=== PATIENT | female | born 1980 | race Caucasian/White ===

== ENCOUNTER → 2020-06-28 11:46 | Outpatient (CLI) | payer BC, SELFPAY ==
--- NOTE | ~2020-06-28 | XR_ITS ---
EXAMINATION: XR chest 2V DATE: 06/28/2020 12:40 INDICATION: Cough. Chest tightness. TECHNIQUE: Frontal and lateral views of the chest were obtained. COMPARISON: Chest 2 views 08/30/2017 FINDINGS: The chest demonstrates clear lungs without pneumonia, pleural effusion, or pneumothorax. Th e heart size is normal. IMPRESSION: 1. No acute cardiopulmonary disease. Reviewed, dictated and finalized at location A. 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
== END ==
PROVIDERS: Visit Provider Physician Assistant
DX: R05 Cough (principal)
CPT/HCPCS: 71046

== ENCOUNTER 2020-07-19 11:13 | Outpatient (CLI) | payer BC, SELFPAY ==
--- NOTE | ~2020-07-19 | CT_ITS ---
EXAMINATION: CTA chest PE protocol DATE: 07/19/2020 12:00 INDICATION: Dyspnea. TECHNIQUE: Computed tomography (CT) pulmonary angiogram of the chest was performed with 100 mL Omnipa que-350 intravenous contrast. Evaluation of the lower lungs is nondiagnostic on the initial images du e to prominent respiratory motion and repeat images were obtained with an additional 100 mL Omnipaque 350 intravenous contrast. Additional 3D reconstructions utilizing coronal maximum intensity projecti on (MIP) were performed. Automated exposure control and iterative reconstruction technique were emplo yed. The dose-length product was 430.98 mGy-cm. COMPARISON: None FINDINGS: Excellent contrast opacification of the pulmonary arteries. There is mild streak artifact from dense contrast in the superior vena cava and right atrium. No respiratory motion artifact on the repeat shabbri ges yielding diagnostic quality study which demonstrates no pulmonary embolism. Tiny calcified left l ower lobe nodule consistent with old granulomatous disease. Lungs are clear. No pneumonia, pulmonary edema, pleural effusion or pneumothorax. Heart size is normal. No pericardial or pleural effusion. Th oracic aorta is normal in caliber with no dissection. No pathologically enlarged thoracic lymphadenop athy. Likely benign 6 mm left thyroid nodule. Visualized upper abdomen is unremarkable. IMPRESSION: 1. No pulmonary embolism or other acute cardiopulmonary disease. Reviewed, dictated and finalized at location B. 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
== END 2020-07-19 11:14 | disposition home or self-care (01) ==
PROVIDERS: PCP Physician Assistant; Visit Provider Physician Assistant
DX: R06.00 Dyspnea, unspecified (principal)
CPT/HCPCS: 71275; Q9967

== ENCOUNTER → 2020-11-18 09:41 | Outpatient (CLI) | payer BC, SELFPAY ==
--- NOTE | ~2020-11-18 | US_ITS ---
EXAMINATION: US thyroid DATE: 11/18/2020 10:19 INDICATION: Thyroid nodule. TECHNIQUE: Multiple ultrasound images of the thyroid were obtained. COMPARISON: None. FINDINGS: The right thyroid lobe measures 5.7 x 1.4 x 1.4 cm. The left thyroid lobe measures 4.8 x 1.2 x 1.8 c m. In the left thyroid lobe, there is a 1.2 cm almost entirely cystic nodule (TI-RADS TR-1). In the left thyroid lobe, there is a 1.0 cm mixed solid and cystic, hypoechoic, wazrm-uvng-uvbf nodule with ill-defined margin without echogenic foci (TR-3). In the right thyroid lobe, there is a 10 mm mixed s olid and cystic, isoechoic, byjzs-akui-ltfs nodule with smooth margin without echogenic foci (TR2). I n the right thyroid isthmus, there is a 12 mm solid, hypoechoic, kustm-vzxk-eigc nodule with smooth m argin without echogenic foci (TR4). IMPRESSION: 1. Thyroid nodules. Thyroid ultrasound is recommended in one year. Reviewed, dictated and finalized at location A.
== END ==
PROVIDERS: PCP Physician Assistant; Visit Provider Physician Assistant
DX: E04.1 Nontoxic single thyroid nodule (principal)
CPT/HCPCS: 76536

== ENCOUNTER → 2021-06-17 16:53 | Outpatient (CLI) | payer BC, SELFPAY ==
--- NOTE | ~2021-06-17 | XR_ITS ---
EXAMINATION: XR chest 2V EXAM DATE: 06/17/2021 17:08 INDICATION: Cough . TECHNIQUE: Frontal and lateral projections of the chest obtained and reviewed. Comparison is made to prior examination from 06/28/2020. FINDINGS: The lungs are clear. There are no pleural effusions. The cardiomediastinal silhouette is within normal limits. There is no pneumothorax suspected. The bones and soft tissues are unremarka ble. IMPRESSION: 1. No acute cardiopulmonary findings. 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
== END ==
PROVIDERS: PCP Physician Assistant; Visit Provider Physician Assistant
DX: R05.9 Cough, unspecified (principal)
CPT/HCPCS: 71046

== ENCOUNTER → 2021-12-15 12:02 | Outpatient (CLI) | payer BC, SELFPAY ==
--- NOTE | ~2021-12-15 | US_ITS ---
EXAMINATION: US thyroid DATE: 12/15/2021 12:18 INDICATION: Thyroid nodule. TECHNIQUE: Multiple ultrasound images of the thyroid were obtained. COMPARISON: Thyroid ultrasound 11/18/2020 FINDINGS: The right thyroid lobe measures 5.4 x 1.5 x 1.5 cm. The left thyroid lobe measures 5.1 x 1.2 x 2.0 c m. In the right thyroid lobe, there is a 9 mm mixed cystic and solid, isoechoic, vathr-oeql-nprs nod ule with smooth margin without echogenic foci (TI-RADS TR2). In the left thyroid lobe, there is a 10 mm spongiform, hypoechoic, msoca-czxg-veyc nodule with smooth margin without echogenic foci (TR2). In the thyroid isthmus, there is an 8 mm solid, isoechoic, vbxqb-uxfl-owuo nodule with ill-defined boni in without echogenic foci (TR3). IMPRESSION: 1. Small thyroid nodules, likely not clinically significant. No follow-up is needed. Reviewed, dictated and finalized at location A. IMPRESSION: 1. Small thyroid nodules, likely not clinically significant. No follow-up is ne eded.
== END ==
PROVIDERS: PCP Physician Assistant; Visit Provider Physician Assistant
DX: E04.2 Nontoxic multinodular goiter (principal)
CPT/HCPCS: 76536

== ENCOUNTER → 2022-10-13 16:57 | Outpatient (CLI) | payer OTHER, SELFPAY ==
--- NOTE | ~2022-10-13 | XR_ITS ---
EXAMINATION: XR chest 2V DATE: 10/13/2022 17:15 INDICATION: Cough TECHNIQUE: PA and lateral views of the chest were obtained. COMPARISON: Chest radiograph dated 06/17/2021 FINDINGS: The lungs remain clear with no focal airspace opacities, pulmonary edema, pleural effusion or pneumot horax. The cardiomediastinal silhouette is normal. Mild to moderate thoracic spondylosis. IMPRESSION: 1. No acute cardiopulmonary disease. Reviewed, dictated and finalized at location A. ATRIC TECHNICIAN
== END ==
PROVIDERS: PCP Physician Assistant; Visit Provider Physician Assistant
DX: R05.9 Cough, unspecified (principal)
CPT/HCPCS: 71046

== ENCOUNTER → 2023-01-30 07:41 | Outpatient (CLI) | payer OTHER, SELFPAY ==
--- NOTE | ~2023-01-30 | MM_ITS ---
EXAMINATION: MM screening kassie BI w yassine HISTORY: Screening mammogram TECHNIQUE: Craniocaudal and mediolateral oblique 3-D tomosynthesis images were obtained and synthetic 2-D images were generated. CAD analysis was submitted and interpreted. COMPARISON: No prior mammogram is available for comparison at this institution. BREAST PARENCHYMAL COMPOSITION: The breasts are heterogeneously dense, which may obscure small masses . FINDINGS: Circumscribed oval approximately 5 x 12 mm mass in the left axillary area; diagnostic left mammogram is recommended, with ultrasound if required. There are subtle indeterminate grouped microcalcifications bilaterally, possibly arterial on the left . Bilateral diagnostic mammography with magnification views is recommended, with ultrasound if requir ed. IMPRESSION: 1. Bilateral subtle indeterminate grouped microcalcifications and left axillary mass 2. Bilateral diagnostic mammogram with magnification views is recommended, with ultrasound if require d BI-RADS Category 0: Incomplete: Needs additional imaging evaluation. Reviewed, dictated and finalized at location A. IMPRESSION: 1. Bilateral subtle indeterminate grouped microcalcifications and left axillary mass 2. Bilateral diagnostic mammogram with magnification views is recommended, with ultrasound if required BI-RADS Category 0: Incomplete: Needs additional imaging evaluation.
== END ==
PROVIDERS: PCP Obstetrics & Gynecology; Visit Provider Obstetrics & Gynecology
DX: Z12.31 Encounter for screening mammogram for malignant neoplasm of breast (principal); R92.8 Other abnormal and inconclusive findings on diagnostic imaging of breast
CPT/HCPCS: 77063; 77067

== ENCOUNTER → 2023-03-06 09:47 | Outpatient (CLI) | payer OTHER, SELFPAY ==
--- NOTE | ~2023-03-06 | MMUS_ITS ---
EXAMINATION: MM diagnostic kassie BI w yassine, US breast BI complete HISTORY: Bilateral subtle indeterminate grouped microcalcifications in left axillary mass reported on 01/30/2023 screening mammogram TECHNIQUE: Additional ML 3-D tomosynthesis images of both breasts were performed and synthetic 2-D im ages were generated. Bilateral magnification views CAD analysis was submitted and interpreted. High r esolution breast ultrasound was performed. COMPARISON: 01/30/2023 bilateral screening mammogram FINDINGS: MAMMOGRAPHIC FINDINGS: There are scattered right benign-appearing calcifications. There is a tight cluster of grouped microcalcifications in the posterior lower outer left breast whic h are indeterminate. These might be related to fibroadenoma, but malignancy is not definitively exclu ded. Stereotactic biopsy should be considered. The heterogeneously dense stroma may obscure masses anywhere in either breast. Complete bilateral gillian ast ultrasound examination was performed. ULTRASOUND: Right breast: 9:00 3 cm from nipple: 3 x 6 mm simple cyst with through transmission posterior enhancement, benign No suspicious right breast mass or shadowing is detected. Left breast: Left axilla: Normal appearing 4 x 7.4 x 7.7 mm lymph node with relatively uniform thickness and echog enicity of the cortex. 11:00 subareolar area: 2.2 x 3.2 x 2.9 mm simple cyst No suspicious mass or shadowing of the left breast is detected. IMPRESSION: 1. Indeterminate grouped microcalcifications, posterior lower outer left breast 2. Stereotactic biopsy of posterior lower outer left breast microcalcifications should be considered BI-RADS category 4, suspicious findings. Reviewed, dictated and finalized at location A. IMPRESSION: 1. Indeterminate grouped microcalcifications, posterior lower outer left breast 2. Stereotactic biopsy of posterior lower outer left breast microcalcifications should be considered BI-RADS category 4, suspicious findings.
== END ==
PROVIDERS: PCP Obstetrics & Gynecology; Visit Provider Obstetrics & Gynecology
DX: R92.8 Other abnormal and inconclusive findings on diagnostic imaging of breast (principal)
CPT/HCPCS: 76641; 77062; 77066; G0279

== ENCOUNTER 2024-05-26 16:25 | Outpatient (CLI) | payer OTHER, SELFPAY ==
--- NOTE | ~2024-05-26 | XR_ITS ---
CHEST RADIOGRAPH, PA AND LATERAL CLINICAL HISTORY: COUGH . COMPARISON: 10/13/2022 TECHNIQUE: PA and lateral views of the chest. FINDINGS The cardiomediastinal silhouette is unremarkable. The lungs are clear. Visualized osseous structures and soft tissues are unremarkable. IMPRESSION: No focal infiltrate or effusion. Reviewed, dictated and finalized at location A.
== END 2024-05-26 16:26 | disposition home or self-care (01) ==
PROVIDERS: PCP Physician Assistant; Visit Provider Physician Assistant
DX: R05.9 Cough, unspecified (principal)
CPT/HCPCS: 71046

== ENCOUNTER 2024-06-20 13:03 | Outpatient (CLI) | payer OTHER, SELFPAY ==
--- NOTE | ~2024-06-20 | XR_ITS ---
EXAMINATION: XR chest 2V DATE: 06/20/2024 13:15 INDICATION: Cough. TECHNIQUE: Frontal and lateral views of the chest were obtained. COMPARISON: Chest 2 views 05/26/2024 FINDINGS: There is no pneumonia, pleural effusion, or pneumothorax. The heart size is normal. IMPRESSION: 1. No acute cardiopulmonary disease. Reviewed, dictated and finalized at location A. 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
== END 2024-06-20 13:04 | disposition home or self-care (01) ==
LOC: GOSHIMG 13:04
PROVIDERS: PCP Physician Assistant; Visit Provider Physician Assistant
DX: R05.9 Cough, unspecified (principal)
CPT/HCPCS: 71046

== ENCOUNTER 2024-07-20 09:58 | Emergency (ER) | payer OTHER, SELFPAY ==
[2024-07-20 10:12] VITALS: BP 128/82; PULSE 95; RESP 16; TEMP 37; O2SAT 99
--- NOTE | 2024-07-20 10:23 | ED_ITS ---
HPI - Skin/Abscess/Foreign Bdy General Chief complaint: Skin/Abscess/Foreign Body Stated complaint: POSSIBLE INSECT BITE Time Seen by Provider: 07/20/24 10:16 Source: patient and RN notes reviewed Mode of arrival: ambulatory Limitations: no limitations History of Present Illness HPI narrative: Patient presents today complaining of a lesion to the right buttocks that was noted while she was showering 2 days ago. She is concerned that it may be a brown recluse bite as she does have them around her home. Denies pain or fever. She has been using mupirocin ointment without improvement of symptoms. Related Data Allergies Allergy/AdvReac Type Severity Reaction Status Date / Time No Known Allergies Allergy Verified 07/20/24 10:14 Review of Systems Review of Systems: CONSTITUTIONAL: Denies body aches, fever, chills, or sweats. EYES: Denies visual changes, redness, or discharge. ENT: Denies rhinorrhea, congestion, sore throat, or otalgia. CARDIOVASCULAR: Denies chest pain, palpitations, or edema. RESPIRATORY: Denies cough or dyspnea. GASTROINTESTINAL: Denies abdominal pain, nausea, vomiting, or diarrhea. GENITOURINARY: Denies dysuria or hematuria. SKIN: + right buttock lesion MUSCULOSKELETAL: Denies back pain, joint pain, or myalgia. NEUROLOGIC: Denies headache, numbness, tingling, or weakness. PSYCH: Denies depression or anxiety. [facility] Family History Family History Father Family history of elevated blood lipids Social History Social History Smoking status: Never smoker Alcohol intake: current Comments At time of signature, I have reviewed and agree with nursing past medical, surgical, social and family history unless otherwise noted. Please see nursing chart for further information. There is no relevant family history pertinent to the presenting complaint Exam Narrative: GENERAL: Well-appearing, well-nourished, and in no acute distress. HEAD: Normocephalic, atraumatic. EYES: EOMI. No redness or drainage. Conjunctivae normal. ENT: Mucous membranes pink and moist. NECK: Normal AROM. CHEST: No respiratory distress. EXTREMITIES: Normal range of motion. No edema. SKIN: Warm, dry, no rash. Capillary refill normal. Normal skin turgor. 1 x 1.5 cm superficial dry lesion to the right buttock that is brown and yellow in color surrounded by some erythema. No edema, drainage, fluctuance noted. NEURO: No focal deficits. Alert and oriented x3. Gait steady. PSYCH: Normal affect. No signs of depression or anxiety. Course Course Level of Care: Express Care Visit Vital Signs Vital signs: Vital Signs Temperature 98.6 F 07/20/24 10:12 Pulse Rate 95 07/20/24 10:12 Respiratory Rate 16 07/20/24 10:12 Blood Pressure 128/82 07/20/24 10:12 Pulse Oximetry 99 07/20/24 10:12 Temperature 98.6 F 07/20/24 10:12 Pulse Rate 95 07/20/24 10:12 Respiratory Rate 16 07/20/24 10:12 Blood Pressure 128/82 07/20/24 10:12 Pulse Oximetry 99 07/20/24 10:12 Reviewed MDM - Skin/Abscess/Foreign Bdy MDM Narrative Medical decision making narrative: Patient will be started on some oral Keflex to help with the infected lesion. Instructed to continue mupirocin ointment as well. At this time, there is no evidence of abscess or necrotic tissue for debridement. Anticipatory guidance given. Differential Diagnosis Differential diagnosis: Likely abscess of skin or subcutaneous tissue, cellulitis, insect bites, impetigo and contact dermatitis Critical Care Time Critical Care Time Critical Care Time: No Discharge Plan Discharge Clinical Impression: Infected lesion of skin Patient Disposition: Home, Self-Care Condition: Stable Instructions: Antibiotic Form, Cellulitis (ED) Additional Instructions: Please take the Keflex as prescribed until gone. Wash with soap and water daily and apply the mupirocin ointment 2-3 times daily. Keep covered with a Band-Aid until healed. Follow-up with your PCP if symptoms worsen. Your blood pressure was elevated above 120/80 today at Urgent Care. This puts you above the threshold for follow up. Please schedule a followup visit with your personal physician as soon as possible, for further evaluation and treatment. Even blood pressure exceeding 120/80 may indicate pre-hypertension. Patient Language: Persian Prescriptions: New cephalexin 500 mg capsule 500 mg PO Q6H 7 Days Qty: 28 0RF mupirocin 2 % ointment 1 applic topical BID 7 Days Qty: 22 0RF Follow-up/Referrals: Guillaume,BUCKY Ferrer [Primary Care Provider] - Time of Disposition: 10:27
== END 2024-07-20 10:40 | disposition home or self-care (01) ==
PROVIDERS: Emergency Provider Nurse Practitioner; PCP Physician Assistant
DX: L08.9 Local infection of the skin and subcutaneous tissue, unspecified (principal)
CPT/HCPCS: 99213; G0463